=== PATIENT | male | born 1950 | race Caucasian/White ===

== ENCOUNTER 2018-07-03 16:45 | Inpatient (IN) | payer MEDICARE, OTHER ==
[2018-07-03 16:53] VITALS: BMI 18.6
--- NOTE | 2018-07-03 17:11 | C.PDOC ---
History Of Present Illness 68 y/o male with a PMHx of liver CA and cirrhosis presents to the ED accompanied by his sister for complaints of increasing abdominal girth and abdominal pain. Sister states the patient was living in [place] on hospice care, and was discharged home to [place] to be with family. Otherwise he denies any fever, vomiting, diarrhea, chest pain, SOB, or other complaints. Time Seen by Provider: 07/03/18 17:04 Chief Complaint (Nursing): Abdominal Pain History Per: Patient History/Exam Limitations: no limitations Onset/Duration Of Symptoms: Days Current Symptoms Are (Timing): Still Present Past Medical History Reviewed: Historical Data, Nursing Documentation, Vital Signs Vital Signs: Last Vital Signs Temp 98.8 F 07/03/18 16:52 Pulse 86 07/03/18 16:52 Resp 20 07/03/18 16:52 BP Pulse Ox 98 07/03/18 16:52 Primary Care Provider: FAMILY PROVIDER,NO - Medical History PMH: Benign Prostatic Hyperplasia, Diabetes, Hepatitis (C), Malignancy (Liver CA) Other PMH: Liver cirrhosis - [facility] Procedures OTHER ENDOSCOPY OF SM INTEST (05/04/13) PACKED CELL TRANSFUSION (05/04/13) PERCUTANEOUS ABDOMINAL DRAINAGE (05/04/13) PLATELET TRANSFUSION (05/04/13) THORACENTESIS (03/11/13) VACCINATION NEC (11/25/12) Family History: States: Unknown Family Hx - Social History Hx Tobacco Use: No Hx Alcohol Use: Yes (STOPPED 5YRS AGO) Hx Substance Use: Yes (HERION,COCAINE,LSD) - Immunization History Hx Tetanus Toxoid Vaccination: No Hx Influenza Vaccination: No Hx Pneumococcal Vaccination: No Review Of Systems Constitutional: Negative for: Fever, Chills Cardiovascular: Negative for: Chest Pain Respiratory: Negative for: Shortness of Breath Gastrointestinal: Positive for: Abdominal Pain, Other (Abdominal Distension). Negative for: Vomiting, Diarrhea Neurological: Negative for: Headache, Dizziness Physical Exam - Physical Exam Appears: No Acute Distress, Chronically Ill, Other (Cachectic) Skin: Warm, Jaundice Head: Atraumatic, Normacephalic Eye(s): bilateral: PERRL, EOMI, Scleral Icterus Oral Mucosa: Moist (and pink) Neck: Normal ROM Chest: Symmetrical Cardiovascular: Rhythm Regular, No Murmur Respiratory: No Accessory Muscle Use, Rales (faint rales at the bases), No Wheezing Gastrointestinal/Abdominal: Bowel Sounds (slightly hyperactive), Soft, No Tenderness, Distention (abdomen appears distended) Extremity: Normal ROM, No Pedal Edema, No Calf Tenderness Pulses: Left Dorsalis Pedis: Normal, Right Dorsalis Pedis: Normal Neurological/Psych: Oriented x3, Normal Speech ED Course And Treatment - Laboratory Results Result Diagrams: 07/03/18 17:40 07/03/18 17:40 ECG: Interpreted By Me ECG Rhythm: Sinus Rhythm, Nonspecific Changes ECG Interpretation: No Acute Changes, Abnormal Rate From EC O2 Sat by Pulse Oximetry: 98 (RA) Pulse Ox Interpretation: Normal Medical Decision Making Medical Decision Making: Impression: 68 y/o M with PMHx of liver CA, cirrhosis, on hospice care, presents w/ abdominal pain and distension, +DNR/DNI Initial Plan: - Obstructive series x-ray - Labs w/ cardiac enzymes - Reassess Patient and sister both state that patient is AAOx3 and compacity to sign DNR/DNI forms. Labs reviewed, Ammonia 41. Will have sister (patient's health care proxy) cosign. Sister states patient needs his normal lactulose dose. 18:[address] Ron, will admit to hospitalist service under Dr. Watson. 18:58 Dr. Ron states patient was previously admit to Dr. Raffi mccarty. 19:00 Case d/w Dr. Thomas who accepts patient to his service. Disposition Counseled Patient/Family Regarding: Studies Performed, Diagnosis - Disposition Disposition: HOSPITALIZED Disposition Time: 18:20 Condition: STABLE - Clinical Impression Clinical Impression: Abdominal discomfort, Cirrhosis of liver, Ascites, Dyspnea, Dehydration, Hyperammonemia - Scribe Statement The provider has reviewed the documentation as recorded by the Hyun Levi Provider Attestation: All medical record entries made by the Hyun were at my direction and personally dictated by me. I have reviewed the chart and agree that the record accurately reflects my personal performance of the history, physical exam, medical decision making, and the department course for this patient. I have also personally directed, reviewed, and agree with the discharge instructions and disposition.
[2018-07-03 17:44] LABS: EOS # 0.1 K/uL (0.0-0.7); MEAN CELL VOLUME 100.4 fL (80.0-94.0); MEAN CORPUSCULAR HEMOGLOBIN 34.8 pg (27.0-31.0); MEAN CORPUSCULAR HGB CONC 34.7 g/dL (33.0-37.0); MONO # 0.6 K/uL (0.0-0.8)
[2018-07-03 17:54] LABS: INR 1.9; PROTHROMBIN TIME 21.2 SECONDS (9.7-12.2)
[2018-07-03 17:58] LABS: ALT/SGPT 63 U/L (21-72); AST/SGOT 116 U/L (17-59); BLOOD UREA NITROGEN 49 mg/dL (9-20); CALCIUM 8.8 mg/dl (8.6-10.4); GFR NON-AFRICAN AMERICAN 55; LIPASE 167 U/L (23-300)
[2018-07-03 17:59] LABS: BASO % 0.1 % (0.0-2.0); EOS % 0.6 % (0.0-4.0); LYMPH # 0.4 K/uL (1.0-4.3); MEAN PLATELET VOLUME 8.5 fL (7.2-11.7); MONO % 7.3 % (0.0-10.0); NEUT # 7.6 K/uL (1.8-7.0); NRBC % 0.3 % (0.0-2.0); RBC 4.04 Mil/uL (4.40-5.90); RED CELL DISTRIBUTION WIDTH 18.6 % (11.5-14.5)
[2018-07-03 18:01] LABS: ALB/GLOB RATIO 0.5 (1.0-2.1)
[2018-07-03 18:05] LABS: HEMOGLOBIN 14.1 g/dL (12.0-18.0); WHITE BLOOD COUNT 8.8 K/uL (4.8-10.8)
[2018-07-03 18:06] LABS: PLATELET COUNT 118 K/uL (130-400)
[2018-07-03 18:08] LABS: B-TYPE NATRIURETIC PEPTIDE 316 pg/mL (0-900)
[2018-07-03] MEDS: Sodium Chloride 0.9% 1,000 ML IV SCH (18:40)
[2018-07-03 21:30] LABS: EOSINOPHIL 2 % (0-4); LYMPHOCYTE 4 % (20-40); MONOCYTE 5 % (0-10); NEUTROPHIL 89 % (50-75); TOTAL CELLS COUNTED 100
[2018-07-03 21:31] LABS: PLATELET ESTIMATE SLIGHTLY DECREASED (NORMAL)
[2018-07-03 21:33] LABS: ANISOCYTOSIS SLIGHT
[2018-07-04] MEDS: Sodium Chloride 0.9% 1,000 ML IV SCH (04:50)
[2018-07-04 09:09] LABS: HEMOGLOBIN 12.5 g/dL (12.0-18.0); MEAN CELL VOLUME 100.5 fL (80.0-94.0); MEAN CORPUSCULAR HEMOGLOBIN 35.7 pg (27.0-31.0); MEAN CORPUSCULAR HGB CONC 35.6 g/dL (33.0-37.0); MEAN PLATELET VOLUME 8.1 fL (7.2-11.7); RBC 3.49 Mil/uL (4.40-5.90); WHITE BLOOD COUNT 6.1 K/uL (4.8-10.8)
[2018-07-04 09:25] LABS: ALB/GLOB RATIO 0.5 (1.0-2.1); ALBUMIN 2.7 g/dL (3.5-5.0); ALT/SGPT 56 U/L (21-72); AST/SGOT 121 U/L (17-59); BLOOD UREA NITROGEN 44 mg/dL (9-20); CALCIUM 8.2 mg/dl (8.6-10.4); GFR NON-AFRICAN AMERICAN > 60
[2018-07-04 13:34] LABS: SQUAMOUS EPITHIAL 2 /hpf (0-5); URINE BACTERIA MOD (<OCC); URINE BILIRUBIN 2+ (NEGATIVE); URINE BLOOD NEGATIVE (NEGATIVE); URINE CLARITY Hazy (Clear); URINE COLOR Amber (YELLOW); URINE GLUCOSE (UA) NORMAL (Normal); URINE LEUKOCYTE ESTERASE 2+ Leu/uL (Negative); URINE PROTEIN NEGATIVE (NEGATIVE)
--- NOTE | 2018-07-04 14:50 | RAD ---
Date of service: 07/03/2018 PROCEDURE: Radiographs of the chest and abdomen (obstructive series) HISTORY: abd pain COMPARISON: Comparison is made to the previous chest x-ray dated 05/10/2013 TECHNIQUE: AP radiograph of the chest, with upright and supine radiographs of the abdomen. 3 views obtained. FINDINGS: CHEST: Lungs: The right lung is smaller than the left. There are linear opacities noted at the lower aspect of the right lung. Cardiovascular: Normal size heart. No pulmonary vascular congestion. No aortic atherosclerotic calcification present Pleura: Small right pleural effusion is suspected Other findings: None. ABDOMEN AND PELVIS: Bowel: Slightly dilated small bowel loops noted at the mid abdomen. Free air: None. Bones: Unremarkable. Other findings: None. IMPRESSION: Slightly dilated small bowel loops noted in the mid abdomen. Small right pleural effusion and linear opacities at the lower aspect of the right lung may represent atelectasis or scar tissue.
--- NOTE | 2018-07-06 09:33 | CP.PCM.PN ---
Subjective - Date & Time of Evaluation Date of Evaluation: 07/06/18 Time of Evaluation: 09:33 - Subjective Subjective: Progress note for Dr. Drew Patient is a 68 year old male with a past medical history of liver cancer and cirrhosis, who presents to the hospital with increased abdominal girth and discomfort. He recently was on hospice in [place] and moved back to [place]. The patient complains of abdominal discomfort/pressure, but denies pain. She denies chest pain, palpitations, dyspnea, cough, nausea, vomiting, fevers, leg pain and leg swelling. PMHx: liver cancer, cirrhosis SurgHx: right inguinal hernia repair FamHx: Brother- DM Meds: denies Allergies: NKDA SocHx: former alcohol use ("a lot of all alcohol" daily for 30+years; quit 15 y ears ago); former smoker (1/4pack [id number]); denies current drug use (formerly used IV heroin for 2 years, quit in the ) Objective - Vital Signs/Intake and Output Vital Signs (last 24 hours): Temp Pulse Resp BP Pulse Ox 97.7 F 106 H 18 107/72 99 07/06/18 07:00 07/06/18 07:02 07/06/18 07:00 07/06/18 09:18 07/06/18 07:00 - Medications Medications: Current Medications Hydrocodone Bitart/Acetaminophen (Vicodin 5 Mg-300 Mg) 2 tab PO Q8H PRN PRN Reason: Pain, severe (8-10) Stop: 07/10/18 21:03 Docusate Sodium (Colace) 100 mg PO BID [facility] Last Admin: 07/06/18 09:17 Dose: 100 mg Furosemide (Lasix) 20 mg PO DAILY [facility] Last Admin: 07/06/18 09:18 Dose: 20 mg Sodium Chloride (Sodium Chloride 0.9%) 1,000 mls @ 100 mls/hr IV .Q10H [facility] Last Admin: 07/04/18 04:50 Dose: 100 mls/hr Lactulose (Enulose) 30 gm PO TID [facility] Last Admin: 07/06/18 09:25 Dose: Not Given Midodrine (Proamatine) 5 mg PO TID [facility] Last Admin: 07/06/18 09:19 Dose: 5 mg Spironolactone (Aldactone) 25 mg PO BID [facility] Last Admin: 07/06/18 09:17 Dose: 25 mg - Labs Labs: 07/04/18 08:44 07/04/18 08:44 PT 21.2 SECONDS (9.7-12.2) H 07/03/18 17:40 INR 1.9 07/03/18 17:40 APTT 42.0 SECONDS (21-34) H 07/03/18 17:40 - Constitutional Appears: No Acute Distress - Head Exam Head Exam: ATRAUMATIC - Eye Exam Eye Exam: EOMI, Scleral icterus - ENT Exam ENT Exam: Mucous Membranes Moist - Respiratory Exam Respiratory Exam: NORMAL BREATHING PATTERN. absent: Rales, Rhonchi, Wheezes - Cardiovascular Exam Cardiovascular Exam: REGULAR RHYTHM, +S1, +S2 - GI/Abdominal Exam GI & Abdominal Exam: Distended, Firm, Normal Bowel Sounds. absent: Tenderness - Extremities Exam Extremities Exam: absent: Pedal Edema, Tenderness - Neurological Exam Neurological Exam: Alert, Awake, Oriented x3 - Psychiatric Exam Psychiatric exam: Normal Mood - Skin Skin Exam: Dry, Warm. absent: Normal Color (jaundiced) Assessment and Plan - Assessment and Plan (Free Text) Plan: 68 year old male with a history of liver cancer and cirrhosis. Liver cancer, Cirrhosis - Abdominal obstructive series: Slightly dilated small bowel loops noted in the mid abdomen. Small right pleural effusion and linear opacities at the lower aspect of the right lung may represent atelectasis or scar tissue. - Palliative care consulted, help appreciated - IR consulted for paracentesis, help appreciated UTI - UA: 2+ LE, 2+ bilirubin, 48 WBC, moderate bacteria - Urine cx: + ecoli, + staph epidermidis - Started macrobid 100mg Q12h daily; will monitor LFTs Case discussed with Dr. Viki Cummins, PGY2
--- NOTE | 2018-07-06 12:43 | CARD ---
APPROVED REPORT Date of service: 07/03/2018 EKG Measurement Heart [id number] <Conclusion> Sinus rhythm with short UT Possible Left atrial enlargement Borderline ECG
--- NOTE | 2018-07-06 15:33 | PCM.PCON ---
History of Present Illness - History of Present Illness History of Present Illness: Palliative consult requested by Doctor Viki for end of life care discussion Patient is a 68 yo male who presented to ED with abdominal distention, pain, and generalized weakness.Patient lived in [place], was on Hospice care there and discharged to come to [place] and stay with his sister. Patient presented POLST form indicating DNR/DNI. Patient's condition has worsened and is he is in need for paracentesis, which was scheduled today. Palliative care was asked to assist in process of admission to Hospice care. PMH: Hep C, liver cirrhosis, liver cancer Soc. Hx: single, lives alone, moved to [place] with his sister Jessica Barraza. Hx: denied Review of Systems - Constitutional Constitutional: Fatigue, Malaise, Weight Loss - EENT Eyes: absent: As Per HPI, Blind Spots, Blurred Vision, Change in Vision, Decreased Night Vision, Diplopia, Discharge, Dry Eye, Exophthalmos, Floaters, Irritation, Itchy Eyes, Loss of Peripheral Vision, Pain, Photophobia, Requires Corrective Lenses, Sees Flashes, Spots in Vision, Tunnel Vision, Other Visual Disturbances, Loss of Vision, Other Ears: absent: As Per HPI, Decreased Hearing, Ear Discharge, Ear Pain, Tinnitus, Abnormal Hearing, Disequilibrium, Dizziness, Other Nose/Mouth/Throat: absent: As Per HPI, Epistaxis, Nasal Congestion, Nasal Discharge, Nasal Obstruction, Nasal Trauma, Nose Pain, Post Nasal Drip, Sinus Pain, Sinus Pressure, Bleeding Gums, Change in Voice, Dental Pain, Dry Mouth, Dysphagia, Halitosis, Hoarsness, Lip Swelling, Mouth Lesions, Mouth Pain, Odynophagia, Sore Throat, Throat Swelling, Tongue Swelling, Facial Pain, Neck Pain, Neck Mass, Other - Cardiovascular Cardiovascular: Dyspnea on Exertion - Respiratory Respiratory: Dyspnea on Exertion - Gastrointestinal Gastrointestinal: Change in Bowel Habits - Genitourinary Genitourinary: Urinary Frequency, Urinary Urgency - Musculoskeletal Musculoskeletal: Limited Range of Motion, Muscle Weakness - Integumentary Integumentary: Change in Pigmentation, Dry Skin, Jaundice - Neurological Neurological: Weakness - Psychiatric Psychiatric: Anxiety - Endocrine Endocrine: Change in Body Appearance - Hematologic/Lymphatic Hematologic: absent: As Per HPI, Easy Bleeding, Easy Bruising, Lymphadenopathy, Other Physical Exam - Constitutional Appears: Chronically Ill - Head Exam Head Exam: ATRAUMATIC, NORMAL INSPECTION, NORMOCEPHALIC - Eye Exam Eye Exam: EOMI, Normal appearance, PERRL Pupil Exam: NORMAL ACCOMODATION, PERRL Additional comments: sclera yellow - ENT Exam ENT Exam: Mucous Membranes Dry - Neck Exam Neck exam: Positive for: Normal Inspection - Respiratory Exam Respiratory Exam: Decreased Breath Sounds, NORMAL BREATHING PATTERN - Cardiovascular Exam Cardiovascular Exam: Tachycardia, Irregular Rhythm - GI/Abdominal Exam GI & Abdominal Exam: Distended, Firm, Guarding, Hypoactive Bowel Sounds - Rectal Exam Rectal Exam: Deferred - Exam Exam: NORMAL INSPECTION - Extremities Exam Extremities exam: Positive for: pedal edema - Back Exam Back exam: NORMAL INSPECTION - Neurological Exam Neurological exam: Alert, Oriented x3 - Psychiatric Exam Psychiatric exam: Anxious - Skin Skin Exam: Dry, Intact, Pallor Palliative Care Assessment - Modified MRC Dyspnea Scale Modified MRC Dyspnea Scale: Has to stop for breath when walking at own pace Grade: 3 - Pain Scale Pain Score: 5 Pain Scale Used: Numeric - Pain Location Left, Right or Bilateral: Bilateral Pain Location Body Site: Abdomen - Pain Description Description: Constant, Pressure Intensity of pain at present: 5 Acceptable Level of Pain: 2-3 Radiation Location: does not radiate Variations/Patterns: Constant pain, not related to food intakes Site Observation: Abdomen Duration: few months Pain Behavior: Guarding, Irritability, Facial Grimacing Aggravating Factors: None Alleviating Factors/Management Techniques: Medication, Position Change, Relaxation Techniques Effects of Pain: Affects ADLs, mood and sleep. - Pavel Scale Sensory Perception: No Impairment Moisture: Rarely Moist Activity: Walks Occasionally Mobility: Slightly Impaired Nutrition: Probably Inadequate Friction & Shear: Potential Problem Total Score - Skin Risk Assessment: 18 - Psychosocial Distress Patient screened for psychosocial distress: Yes Psychosocial Intervention(s): Goals of care discussed, arrangd for hospice evaluation, home hospice discussed with patient's sister Jessica who agreed with. Outcome: Resolved Palliative Care - Goals Treatment Goal(s): Alleviate symptoms End of life care discussed: Yes - Plan Interdisciplinary involved: Nurse, lay out worker, ancillary services manager therapy, Physician, Pastoral care Discharge planning: Home, Hospice Assessment & Plan - Assessment and Plan (Free Text) Assessment: Palliative consult DNR/DNI, POLST on chart, PPS 20% I reviewed medical records, all diagnostic studies, examined and interviewed patient in the bed. Patient is alert, oriented X 3, looking very ill. Skin and sclera jaundiced. Abdomen uncomfortably distended. Patient unable to take deep breaths due to distention. Doctor Drew present and Paracentesis ordered for today. I discuses possibility of Pleur Ex catheter as a solution for managing ascites at home. Patient agreed. Doctor Drew concurred. Goals of care discussed with patient. Patient is fully aware of his diagnosis and understands hospice care. He wants to feel better, go home, and peacefully. Patient requested I talk to his sister and evaluate her ability to provide environment for his home hospice care. I spoke to Jessica over the phone. She understands that her brother's life expectancy is very short. She is willing to take care of him at home and needs little extra time to rearrange furniture at home. She is concerned that her grand kids could see patient very sick and tries to provide private room for him. Jessica agreed with home hospice. Impression * Metastatic disease * Terminal stage * Life expectancy very short * Patient wishes to be assisted with symptoms control especially abdominal distention and pain * Patient agreeable with home hospice. His sister Jessica supports it * Patient wishes to remain DNR/DNI Suggestion * Consider Pleur Ex cath insertion prior to discharge * Continue Lactulose * Continue Aldactone * Pain management as of resent * Hospice evaluation for home placement. Palliative care will remain on board as needed. Advance Care planing 55 min
[2018-07-06] MEDS: Hydrocodone/Acetaminophen 5 mg /300 mg Tab PO PRN (20:11)
[2018-07-07 08:12] LABS: BASO % 0.1 % (0.0-2.0); EOS # 0.1 K/uL (0.0-0.7); LYMPH # 0.4 K/uL (1.0-4.3); MEAN CORPUSCULAR HEMOGLOBIN 35.2 pg (27.0-31.0); RBC 3.59 Mil/uL (4.40-5.90); RED CELL DISTRIBUTION WIDTH 19.1 % (11.5-14.5)
[2018-07-07 08:19] LABS: EOS % 2.5 % (0.0-4.0); HEMOGLOBIN 12.7 g/dL (12.0-18.0); LYMPH % 9.6 % (20.0-40.0); MEAN CELL VOLUME 100.4 fL (80.0-94.0); MEAN CORPUSCULAR HGB CONC 35.1 g/dL (33.0-37.0); MEAN PLATELET VOLUME 7.8 fL (7.2-11.7); MONO # 0.8 K/uL (0.0-0.8); MONO % 18.2 % (0.0-10.0); NEUT # 2.9 K/uL (1.8-7.0); NEUT % 69.6 % (50.0-75.0); NRBC % 0.2 % (0.0-2.0); WHITE BLOOD COUNT 4.1 K/uL (4.8-10.8)
[2018-07-07 08:20] LABS: PLATELET COUNT 109 K/uL (130-400)
[2018-07-07 08:38] LABS: ALB/GLOB RATIO 0.5 (1.0-2.1); ALBUMIN 2.7 g/dL (3.5-5.0); ALT/SGPT 59 U/L (21-72); AST/SGOT 116 U/L (17-59); BLOOD UREA NITROGEN 36 mg/dL (9-20); CALCIUM 8.7 mg/dl (8.6-10.4); GFR NON-AFRICAN AMERICAN > 60
[2018-07-07 10:43] LABS: ANISOCYTOSIS MODERATE; LYMPHOCYTE 7 % (20-40); MONOCYTE 15 % (0-10); NEUTROPHIL 78 % (50-75); PLATELET ESTIMATE SLIGHTLY DECREASED (NORMAL); TOTAL CELLS COUNTED 100
[2018-07-07] MEDS ORDERED: Lidocaine 2% MPF (5 ml) Inj ONE (12:07)
--- NOTE | 2018-07-07 12:26 | PCM.PPROG ---
Palliative Care - Goals Treatment Goal(s): Alleviate symptoms End of life care discussed: Yes - Plan Interdisciplinary involved: Nurse, mechanical maintenance worker, strategic accounts manager, Physician, Pastoral care Discharge planning: Home, Hospice
--- NOTE | 2018-07-07 12:29 | PCM.PPROG ---
History of Present Illness - History of Present Illness History of Present Illness: Patient examined in bed, looking ill. Abdomen still distended. Patient is for paracentesis today. Patient is anxious and called his sister with impression he was discharged home today. Patient is planed for Pleurx cath placement as well. primary team is working on scheduling it with IR. Patient is to be evaluated by hospice for home placement. Sister Jessica is requesting to be called when hospice arrives. Review of Systems - Constitutional Constitutional: Fatigue, Weight Loss, Weakness - EENT Eyes: absent: As Per HPI, Blind Spots, Blurred Vision, Change in Vision, Decreased Night Vision, Diplopia, Discharge, Dry Eye, Exophthalmos, Floaters, Irritation, Itchy Eyes, Loss of Peripheral Vision, Pain, Photophobia, Requires Corrective Lenses, Sees Flashes, Spots in Vision, Tunnel Vision, Other Visual Disturbances, Loss of Vision, Other Ears: absent: As Per HPI, Decreased Hearing, Ear Discharge, Ear Pain, Tinnitus, Abnormal Hearing, Disequilibrium, Dizziness, Other Nose/Mouth/Throat: absent: As Per HPI, Epistaxis, Nasal Congestion, Nasal Discharge, Nasal Obstruction, Nasal Trauma, Nose Pain, Post Nasal Drip, Sinus Pain, Sinus Pressure, Bleeding Gums, Change in Voice, Dental Pain, Dry Mouth, Dysphagia, Halitosis, Hoarsness, Lip Swelling, Mouth Lesions, Mouth Pain, Pam nophagia, Sore Throat, Throat Swelling, Tongue Swelling, Facial Pain, Neck Pain, Neck Mass, Other - Cardiovascular Cardiovascular: Dyspnea, Dyspnea on Exertion - Respiratory Respiratory: Dyspnea, Dyspnea on Exertion - Gastrointestinal Gastrointestinal: Bloating - Genitourinary Genitourinary: Urinary Frequency, Urinary Urgency - Musculoskeletal Musculoskeletal: Abnormal Gait, Limited Range of Motion, Stiffness - Integumentary Integumentary: Change in Pigmentation, Dry Skin - Neurological Neurological: Weakness - Psychiatric Psychiatric: Anxiety - Endocrine Endocrine: Change in Body Appearance - Hematologic/Lymphatic Hematologic: Easy Bleeding Physical Exam - Constitutional Appears: Chronically Ill - Head Exam Head Exam: ATRAUMATIC, NORMAL INSPECTION, NORMOCEPHALIC - Eye Exam Eye Exam: EOMI, Normal appearance, PERRL Pupil Exam: NORMAL ACCOMODATION, PERRL - ENT Exam ENT Exam: Mucous Membranes Dry - Neck Exam Neck exam: Positive for: Normal Inspection - Respiratory Exam Respiratory Exam: Decreased Breath Sounds, NORMAL BREATHING PATTERN - Cardiovascular Exam Cardiovascular Exam: Tachycardia, Irregular Rhythm - GI/Abdominal Exam GI & Abdominal Exam: Distended, Firm, Hypoactive Bowel Sounds - Rectal Exam Rectal Exam: Deferred - Exam Exam: NORMAL INSPECTION - Extremities Exam Extremities exam: Positive for: pedal edema - Back Exam Back exam: NORMAL INSPECTION - Neurological Exam Neurological exam: Alert, Oriented x3 - Psychiatric Exam Psychiatric exam: Anxious - Skin Skin Exam: Dry, Intact Additional comments: jaundiced Palliative Care Assessment - Modified MRC Dyspnea Scale Modified MRC Dyspnea Scale: Short of Breath when hurrying or walking up a slight hill Grade: 2 - Pain Scale Pain Score: 5 Pain Scale Used: Numeric - Pain Location Left, Right or Bilateral: Bilateral Pain Location Body Site: Abdomen - Pain Description Description: Constant, Pressure, Dull Intensity of pain at present: 5 Acceptable Level of Pain: 2-3 Radiation Location: NA Variations/Patterns: NA Site Observation: Abdomen Duration: Months Pain Behavior: Irritability, Rubbing Site Aggravating Factors: None Alleviating Factors/Management Techniques: Medication, Relaxation Techniques Effects of Pain: Affects mood, sleep, appetite Effectiveness of Techniques: Pain level maintained bellow 4/10 with pain meds - Pavel Scale Sensory Perception: No Impairment Moisture: Rarely Moist Activity: Walks Frequently Mobility: Slightly Impaired Nutrition: Probably Inadequate Friction & Shear: Potential Problem Total Score - Skin Risk Assessment: 19 - Psychosocial Distress Patient screened for psychosocial distress: Yes Outcome: Referred to social human services assistants, Referred to pastoral care (Distress level remains mild to high due to diagnosis and anticipations of .) Palliative Care - Goals Treatment Goal(s): Alleviate symptoms End of life care discussed: Yes End of life discussion: End of life care discussed with patient's sister Jessica over the phone. She understands that patient will be evaluated for hospice care at home and agreed. Jessica also agreed with Pleurex cath insertion. This was shared with Control Room Tender Kate and Doctor Snehal. Awaiting Hospice evaluation. - Plan Interdisciplinary involved: Nurse, dairy husbandry worker, business unit manager, Physician, Pastoral care Discharge planning: Home, Hospice Assessment & Plan - Assessment and Plan (Free Text) Assessment: Impression * Patient remains clinically very ill with complex symptoms requiring complex management * Life expectancy is very short, MELD score 29, indicating 20% mortality rate over 3 months period * Increased anxiety related to diagnosis and anticipation * At risk for malnutrition * Mild dyspnea 2nd to distended abdomen * Abdominal pain related to ascites and liver cancer * At risk for pressure sores due to decreased ability to ambulate, prolonged bed rest and poor nutrition Suggestion * Assist with ADLs and reassure of safety * Hospice evaluation for Home based hospice care * Consider Remeron Q HS for management of anxiety, depression and insomnia * Offer pleasure food * O2 via [place] * promote skin integrity * Paracentesis and Pleurex cath Palliative care will remain on board as needed to offer support and assist with symptoms management. Advance Care planing 30 min
--- NOTE | 2018-07-07 13:38 | CP.PCM.PN ---
Subjective - Date & Time of Evaluation Date of Evaluation: 07/07/18 Time of Evaluation: 13:31 - Subjective Subjective: Medicine note for Dr. Drew's Service Patient was seen and examined at bedside. Patient admitted to shortness of breath and abdominal pain 2/2 to increased abdominal girth. Patient is slightly altered. Nursing reports 3-5 BM overnight. -- Patient is now s/p paracentesis 7200cc removed. PleurX reserved for patient, plan for /friday insertion pending volume of ascites. Objective - Vital Signs/Intake and Output Vital Signs (last 24 hours): Temp Pulse Resp BP Pulse Ox 97.4 F L 98 H 20 110/72 100 07/07/18 07:00 07/07/18 07:00 07/07/18 07:00 07/07/18 09:34 07/07/18 07:00 Intake and Output: 07/07/18 07/07/18 06:59 18:59 Intake Total 380 Balance 380 - Medications Medications: Current Medications Hydrocodone Bitart/Acetaminophen (Vicodin 5 Mg-300 Mg) 2 tab PO Q8H PRN PRN Reason: Pain, severe (8-10) Stop: 07/10/18 21:03 Last Admin: 07/06/18 20:11 Dose: 2 tab Docusate Sodium (Colace) 100 mg PO BID [facility] Last Admin: 07/07/18 09:32 Dose: 100 mg Furosemide (Lasix) 20 mg PO DAILY [facility] Last Admin: 07/07/18 09:34 Dose: 20 mg Lactulose (Enulose) 30 gm PO TID [facility] Last Admin: 07/07/18 09:33 Dose: Not Given Midodrine (Proamatine) 5 mg PO TID [facility] Last Admin: 07/07/18 09:32 Dose: 5 mg Nitrofurantoin Macrocrystals (Macrobid) 100 mg PO Q12H [facility]; Protocol Stop: 07/08/18 14:31 Last Admin: 07/07/18 02:19 Dose: 100 mg Spironolactone (Aldactone) 25 mg PO BID [facility] Last Admin: 07/07/18 09:33 Dose: 25 mg - Labs Labs: 07/07/18 07:57 07/07/18 07:57 PT 21.2 SECONDS (9.7-12.2) H 07/03/18 17:40 INR 1.9 07/03/18 17:40 APTT 42.0 SECONDS (21-34) H 07/03/18 17:40 - Constitutional Appears: Confused, Cachectic, Chronically Ill - Head Exam Head Exam: NORMAL INSPECTION, NORMOCEPHALIC - Eye Exam Eye Exam: EOMI, Normal appearance, PERRL, Scleral icterus Pupil Exam: NORMAL ACCOMODATION - ENT Exam ENT Exam: Mucous Membranes Dry - Respiratory Exam Respiratory Exam: Clear to Ausculation Bilateral, NORMAL BREATHING PATTERN. absent: Decreased Breath Sounds - Cardiovascular Exam Cardiovascular Exam: Tachycardia - GI/Abdominal Exam GI & Abdominal Exam: Distended, Firm, Tenderness, Organomegaly - Extremities Exam Extremities Exam: Normal Inspection. absent: Pedal Edema, Tenderness - Neurological Exam Neurological Exam: Alert, Awake. absent: Oriented x3 - Psychiatric Exam Psychiatric exam: Normal Affect, Normal Mood - Skin Skin Exam: absent: Normal Color (jaundice) Assessment and Plan - Assessment and Plan (Free Text) Plan: Liver Cancer Cirrhosis -- IR consulted for PleurX catheter insertion Management - Therapeutic paracentesis performed 07/07/18 - 7200cc removed - Plan for PleurX catheter insertion 07/09 or 07/10 pending volume of ascites - Home hospice evaluation is being performed - Jessica (Sister) is POA, agreeable to PleurX cath and home hospice Prophylactic Measures - DVT PPX: Lovenox daily Disposition: Patient is for PleurX catheter 07/09 or 07/10. Sister will be visiting today to speak to Hospice. DELORIS Drew, Chyna Brian DO, PGY2
--- NOTE | 2018-07-08 06:37 | HP ---
HISTORY OF PRESENT ILLNESS: Mr. Mora was admitted to the hospital with the chief complaints of abdominal pain, distention, Patient has history of liver disease, liver cirrhosis. The patient moved from [place] where he was in Hospice. cirrhosis and ascites. PHYSICAL EXAMINATION: GENERAL: The patient is awake, alert, oriented . VITAL SIGNS: Temperature . HEENT: Within normal limits. NECK: Supple. CHEST: Symmetrical. HEART: Regular. ABDOMEN: Distended. EXTREMITIES: No edema. IMPRESSION AND PLAN: The patient suffers from liver cirrhosis, ascites, liver failure. At this point, the patient is to get bedrest, supportive care. palliative care consult. Jennifer Drew MD
[2018-07-08 07:17] LABS: BASO % 0.2 % (0.0-2.0); EOS # 0.1 K/uL (0.0-0.7); EOS % 2.5 % (0.0-4.0); HEMOGLOBIN 12.9 g/dL (12.0-18.0); LYMPH # 0.5 K/uL (1.0-4.3); LYMPH % 9.3 % (20.0-40.0); MEAN CELL VOLUME 100.4 fL (80.0-94.0); MEAN CORPUSCULAR HEMOGLOBIN 34.8 pg (27.0-31.0); MEAN CORPUSCULAR HGB CONC 34.6 g/dL (33.0-37.0); MEAN PLATELET VOLUME 7.9 fL (7.2-11.7); MONO # 0.9 K/uL (0.0-0.8); MONO % 19.5 % (0.0-10.0); NEUT # 3.3 K/uL (1.8-7.0); NEUT % 68.5 % (50.0-75.0); PLATELET COUNT 99 K/uL (130-400); RBC 3.72 Mil/uL (4.40-5.90); RED CELL DISTRIBUTION WIDTH 18.6 % (11.5-14.5); WHITE BLOOD COUNT 4.8 K/uL (4.8-10.8)
[2018-07-08 07:25] LABS: ALT/SGPT 70 U/L (21-72); AST/SGOT 129 U/L (17-59); BLOOD UREA NITROGEN 36 mg/dL (9-20); CALCIUM 8.5 mg/dl (8.6-10.4); GFR NON-AFRICAN AMERICAN > 60
[2018-07-08 07:32] LABS: ALB/GLOB RATIO 0.5 (1.0-2.1); ALBUMIN 2.7 g/dL (3.5-5.0)
--- NOTE | 2018-07-08 09:18 | CP.PCM.PN ---
Subjective - Date & Time of Evaluation Date of Evaluation: 07/08/18 Time of Evaluation: 09:16 - Subjective Subjective: Medicine note for Dr. Drew's Service Patient was seen and examined at bedside. Patient reports shortness of breath is improving. Objective - Vital Signs/Intake and Output Vital Signs (last 24 hours): Temp Pulse Resp BP Pulse Ox 97.7 F 100 H 18 100/67 100 07/08/18 07:00 07/08/18 07:00 07/08/18 07:00 07/08/18 07:00 07/08/18 07:00 Intake and Output: 07/08/18 07/08/18 06:59 18:59 Intake Total 400 Balance 400 - Medications Medications: Current Medications Hydrocodone Bitart/Acetaminophen (Vicodin 5 Mg-300 Mg) 2 tab PO Q8H PRN PRN Reason: Pain, severe (8-10) Stop: 07/10/18 21:03 Last Admin: 07/06/18 20:11 Dose: 2 tab Docusate Sodium (Colace) 100 mg PO BID [facility] Last Admin: 07/07/18 17:08 Dose: 100 mg Enoxaparin Sodium (Lovenox) 40 mg SC DAILY [facility] Furosemide (Lasix) 20 mg PO DAILY [facility] Last Admin: 07/07/18 09:34 Dose: 20 mg Lactulose (Enulose) 30 gm PO TID [facility] Last Admin: 07/07/18 17:10 Dose: 30 gm Midodrine (Proamatine) 5 mg PO TID [facility] Last Admin: 07/07/18 17:08 Dose: 5 mg Nitrofurantoin Macrocrystals (Macrobid) 100 mg PO Q12H [facility]; Protocol Stop: 07/08/18 14:31 Last Admin: 07/08/18 02:30 Dose: 100 mg Spironolactone (Aldactone) 25 mg PO BID [facility] Last Admin: 07/07/18 17:08 Dose: 25 mg - Labs Labs: 07/08/18 06:54 07/08/18 06:54 PT 21.2 SECONDS (9.7-12.2) H 07/03/18 17:40 INR 1.9 07/03/18 17:40 APTT 42.0 SECONDS (21-34) H 07/03/18 17:40 - Constitutional Appears: No Acute Distress, Cachectic, Chronically Ill - Head Exam Head Exam: NORMAL INSPECTION, NORMOCEPHALIC - Eye Exam Eye Exam: EOMI, Normal appearance, PERRL, Scleral icterus - ENT Exam ENT Exam: Mucous Membranes Dry - Respiratory Exam Respiratory Exam: Clear to Ausculation Bilateral, NORMAL BREATHING PATTERN - Cardiovascular Exam Cardiovascular Exam: Tachycardia - GI/Abdominal Exam GI & Abdominal Exam: Distended, Soft, Normal Bowel Sounds. absent: Firm, Tenderness - Extremities Exam Extremities Exam: Normal Inspection. absent: Pedal Edema, Tenderness - Back Exam Back Exam: NORMAL INSPECTION - Neurological Exam Neurological Exam: Alert, Awake, Oriented x3 - Psychiatric Exam Psychiatric exam: Normal Affect, Normal Mood - Skin Skin Exam: Dry, Intact, Normal Color, Warm Assessment and Plan - Assessment and Plan (Free Text) Plan: Liver Cancer Cirrhosis -- IR consulted for PleurX catheter insertion Management - Therapeutic paracentesis performed 07/07/18 - 7200cc removed - Home hospice evaluation is being performed - Jessica (Sister) is POA, agreeable to PleurX cath and home hospice - Plan for PleurX catheter insertion 07/09 or 07/10 pending volume of ascites Prophylactic Measures - DVT PPX: Lovenox daily Disposition: Patient is for PleurX catheter 07/09 or 07/10. Sister will be visiting to speak to Hospice. DELORIS Drew, Chyna Brian DO, PGY2
[2018-07-08] MEDS: Enoxaparin 40 mg Syringe SC SCH (09:32)
[2018-07-08 09:59] LABS: ANISOCYTOSIS SLIGHT; EOSINOPHIL 3 % (0-4); LYMPHOCYTE 11 % (20-40); MONOCYTE 23 % (0-10); NEUTROPHIL 63 % (50-75); PLATELET ESTIMATE DECREASED (NORMAL); TOTAL CELLS COUNTED 100
--- NOTE | 2018-07-08 10:08 | PCM.SURG1 ---
Surgeon's Initial Post Op Note - Surgeon's Notes Surgeon: Ted Mora MD Homogenizer Operator: NONE Type of Anesthesia: Local Pre-Operative Diagnosis: Ascites Operative Findings: US showed large amount of ascites Post-Operative Diagnosis: Ascites Operation Performed: US guided paracentesis Specimen/Specimens Removed: 7.2 liters of straw colored fluid Estimated Blood Loss: EBL {In ML}: 0 Blood Products Given: N/A Drains Used: No Drains Post-Op Condition: Poor Date of Surgery/Procedure: 07/07/18 Time of Surgery/Procedure: 12:20
--- NOTE | 2018-07-09 07:12 | CP.PCM.PN ---
Subjective - Date & Time of Evaluation Date of Evaluation: 07/09/18 Time of Evaluation: 07:12 - Subjective Subjective: Progress note for Dr. Drew Patient was seen and examined at bedside in no acute distress. Patient states he has minimal abdominal discomfort post paracentesis, but believes fluid is building up again. He denies chest pain, palpitations, dyspnea, cough, n/v, fevers, leg pain and leg swelling. No acute events overnight. Objective - Vital Signs/Intake and Output Vital Signs (last 24 hours): Temp Pulse Resp BP Pulse Ox 97.5 F L 97 H 20 101/68 97 07/08/18 23:00 07/08/18 23:00 07/08/18 23:00 07/08/18 23:00 07/08/18 23:00 - Medications Medications: Current Medications Hydrocodone Bitart/Acetaminophen (Vicodin 5 Mg-300 Mg) 2 tab PO Q8H PRN PRN Reason: Pain, severe (8-10) Stop: 07/10/18 21:03 Last Admin: 07/06/18 20:11 Dose: 2 tab Docusate Sodium (Colace) 100 mg PO BID [facility] Last Admin: 07/08/18 17:28 Dose: 100 mg Enoxaparin Sodium (Lovenox) 40 mg SC DAILY [facility] Last Admin: 07/08/18 09:32 Dose: 40 mg Furosemide (Lasix) 20 mg PO DAILY [facility] Last Admin: 07/08/18 09:51 Dose: Not Given Lactulose (Enulose) 30 gm PO TID [facility] Last Admin: 07/08/18 17:28 Dose: Not Given Midodrine (Proamatine) 5 mg PO TID [facility] Last Admin: 07/08/18 17:28 Dose: 5 mg Spironolactone (Aldactone) 25 mg PO BID [facility] Last Admin: 07/08/18 17:28 Dose: 25 mg - Labs Labs: 07/08/18 06:54 07/08/18 06:54 PT 21.2 SECONDS (9.7-12.2) H 07/03/18 17:40 INR 1.9 07/03/18 17:40 APTT 42.0 SECONDS (21-34) H 07/03/18 17:40 - Additional Findings Additional findings: - Constitutional Appears: No Acute Distress - Head Exam Head Exam: ATRAUMATIC - Eye Exam Eye Exam: EOMI, Scleral icterus - ENT Exam ENT Exam: Mucous Membranes Moist - Respiratory Exam Respiratory Exam: NORMAL BREATHING PATTERN. absent: Rales, Rhonchi, Wheezes - Cardiovascular Exam Cardiovascular Exam: REGULAR RHYTHM, +S1, +S2 - GI/Abdominal Exam GI & Abdominal Exam: Distended, soft, Normal Bowel Sounds. absent: Tenderness - Extremities Exam Extremities Exam: absent: Pedal Edema, Tenderness - Neurological Exam Neurological Exam: Alert, Awake, Oriented x3 - Psychiatric Exam Psychiatric exam: Normal Mood - Skin Skin Exam: Dry, Warm. absent: Normal Color (jaundiced) Assessment and Plan - Assessment and Plan (Free Text) Plan: 68 year old male with a history of liver cancer and cirrhosis. Liver cancer, Cirrhosis - Abdominal obstructive series: Slightly dilated small bowel loops noted in the mid abdomen. Small right pleural effusion and linear opacities at the lower aspect of the right lung may represent atelectasis or scar tissue. - Palliative care consulted, help appreciated * Home hospice evaluation is being performed - Jessica (Sister) is POA, agreeable to PleurX cath and home hospice - IR consulted for paracentesis and PleurX catheter placement; help appreciated * Therapeutic paracentesis performed 07/07/18 - 7200cc removed * PleurX catheter placement scheduled for today, 07/09/18. UTI - UA: 2+ LE, 2+ bilirubin, 48 WBC, moderate bacteria - Urine cx: + ecoli, + staph epidermidis - Macrobid 100mg Q12h daily; will monitor LFTs; last dose given on 07/08/18 Prophylactic Measures - DVT PPX: Lovenox daily Case discussed with Dr. Viki Cummins, PGY2
[2018-07-09 08:23] LABS: INR 1.9; PROTHROMBIN TIME 20.5 SECONDS (9.7-12.2)
[2018-07-09 08:35] LABS: ALB/GLOB RATIO 0.5 (1.0-2.1); ALBUMIN 2.7 g/dL (3.5-5.0); ALT/SGPT 73 U/L (21-72); AST/SGOT 133 U/L (17-59); BLOOD UREA NITROGEN 38 mg/dL (9-20); CALCIUM 8.7 mg/dl (8.6-10.4); GFR NON-AFRICAN AMERICAN 55
[2018-07-09 08:39] LABS: EOS # 0.1 K/uL (0.0-0.7); EOS % 1.3 % (0.0-4.0); HEMOGLOBIN 13.6 g/dL (12.0-18.0); LYMPH # 0.6 K/uL (1.0-4.3); LYMPH % 9.7 % (20.0-40.0); MEAN CELL VOLUME 100.8 fL (80.0-94.0); MEAN CORPUSCULAR HEMOGLOBIN 35.4 pg (27.0-31.0); MEAN CORPUSCULAR HGB CONC 35.1 g/dL (33.0-37.0); MEAN PLATELET VOLUME 7.9 fL (7.2-11.7); MONO # 1.2 K/uL (0.0-0.8); MONO % 18.1 % (0.0-10.0); NEUT # 4.6 K/uL (1.8-7.0); NEUT % 70.9 % (50.0-75.0); PLATELET COUNT 106 K/uL (130-400); RBC 3.84 Mil/uL (4.40-5.90); RED CELL DISTRIBUTION WIDTH 19.2 % (11.5-14.5); WHITE BLOOD COUNT 6.5 K/uL (4.8-10.8)
--- NOTE | 2018-07-09 09:12 | US ---
Date of Procedure: 07/07/2018 PROCEDURE: Ultrasound-guided paracentesis, CPT 48103 Medications: 7 cc 1% Lidocaine HISTORY: Ascites, abdominal pain, cirrhosis TECHNIQUE: Following informed consent , the patient was placed supine on the stretcher and the site was marked. A limited abdominal ultrasound was performed that showed a large amount of intra-abdominal fluid. Procedural time out was called and the Pt's abdomen was marked and prepped and draped in the usual sterile fashion. Ultrasound-guided large volume paracentesis performed. A total of 7.2 Liters of straw colored fluid was removed without complication. IMPRESSION: Ultrasound-guided large volume paracentesis.
[2018-07-09] MEDS ORDERED: Lidocaine Hydrochloride 20 ML INJ ONE (09:44)
[2018-07-09] MEDS ORDERED: ceFAZolin 1 gm in NS 1 GM/100 ML BAG IVPB ONE (09:45)
[2018-07-09] MEDS ORDERED: Midazolam 2 MG/2 ML VIAL ONE (09:51)
[2018-07-09 09:54] LABS: ANISOCYTOSIS MODERATE; BANDS 1 % (0-2); EOSINOPHIL 2 % (0-4); LYMPHOCYTE 8 % (20-40); MONOCYTE 16 % (0-10); NEUTROPHIL 73 % (50-75); PLATELET ESTIMATE SLIGHTLY DECREASED (NORMAL); POIKILOCYTOSIS SLIGHT; TOTAL CELLS COUNTED 100
[2018-07-09 09:55] LABS: BURR CELLS SLIGHT
--- NOTE | 2018-07-09 11:37 | PCM.SURG1 ---
Surgeon's Initial Post Op Note - Surgeon's Notes Surgeon: Ted Mora MD Learning And Development Analyst: NONE Type of Anesthesia: Local Pre-Operative Diagnosis: Ascites, liver cancer Operative Findings: US showed moderate ascites Post-Operative Diagnosis: Ascites, liver cancer Operation Performed: PleurX peritoneal drainage catheter placement. Specimen/Specimens Removed: none Estimated Blood Loss: EBL {In ML}: 2 Blood Products Given: N/A Post-Op Condition: Poor Date of Surgery/Procedure: 07/09/18 Time of Surgery/Procedure: 11:30
[2018-07-09] MEDS: Hydrocodone/Acetaminophen 5 mg /300 mg Tab PO PRN ×2 (14:16→22:02)
--- NOTE | 2018-07-10 07:01 | CP.PCM.PN ---
Subjective - Date & Time of Evaluation Date of Evaluation: 07/10/18 Time of Evaluation: 06:57 - Subjective Subjective: Medicine note for Dr. Drew's Service Patient was seen and examined at bedside. Patient reports he feels some pain at pleurx cathetar insertion but overall, feels "okay". Denied any shortness of breath or chest pain. Objective - Vital Signs/Intake and Output Vital Signs (last 24 hours): Temp Pulse Resp BP Pulse Ox 97.8 F 93 H 20 95/60 L 98 07/09/18 23:40 07/09/18 23:40 07/09/18 23:40 07/09/18 23:40 07/09/18 23:40 Intake and Output: 07/09/18 07/10/18 18:59 06:59 Intake Total 608 300 Balance 608 300 - Medications Medications: Current Medications Hydrocodone Bitart/Acetaminophen (Vicodin 5 Mg-300 Mg) 2 tab PO Q8H PRN PRN Reason: Pain, severe (8-10) Stop: 07/10/18 21:03 Last Admin: 07/09/18 22:02 Dose: 2 tab Docusate Sodium (Colace) 100 mg PO BID [facility] Last Admin: 07/09/18 17:32 Dose: 100 mg Enoxaparin Sodium (Lovenox) 40 mg SC DAILY [facility] Last Admin: 07/08/18 09:32 Dose: 40 mg Furosemide (Lasix) 20 mg PO DAILY [facility] Last Admin: 07/09/18 10:00 Dose: Not Given Lactulose (Enulose) 30 gm PO TID [facility] Last Admin: 07/09/18 17:35 Dose: 30 gm Midodrine (Proamatine) 5 mg PO TID [facility] Last Admin: 07/09/18 17:33 Dose: 5 mg Spironolactone (Aldactone) 25 mg PO BID [facility] Last Admin: 07/09/18 17:32 Dose: 25 mg - Labs Labs: 07/09/18 08:08 07/09/18 08:08 PT 20.5 SECONDS (9.7-12.2) H 07/09/18 08:08 INR 1.9 07/09/18 08:08 APTT 50.0 SECONDS (21-34) H 07/09/18 08:08 - Constitutional Appears: No Acute Distress, Cachectic, Chronically Ill - Head Exam Head Exam: NORMAL INSPECTION, NORMOCEPHALIC - Eye Exam Eye Exam: EOMI, Normal appearance, Scleral icterus Pupil Exam: NORMAL ACCOMODATION - ENT Exam ENT Exam: Mucous Membranes Dry - Respiratory Exam Respiratory Exam: Clear to Ausculation Bilateral, NORMAL BREATHING PATTERN. absent: Decreased Breath Sounds, Wheezes - Cardiovascular Exam Cardiovascular Exam: REGULAR RHYTHM - GI/Abdominal Exam GI & Abdominal Exam: Distended, Soft, Normal Bowel Sounds Additional comments: Pleurx catheter in place, dressing clean dry and intact - Extremities Exam Extremities Exam: Normal Inspection. absent: Pedal Edema, Tenderness - Neurological Exam Neurological Exam: Alert, Awake, Oriented x3 - Psychiatric Exam Psychiatric exam: Normal Affect, Normal Mood - Skin Additional comments: jaundice Assessment and Plan - Assessment and Plan (Free Text) Plan: Liver Cancer Cirrhosis -- Palliative Care consulted - for goals of care -- IR consulted for PleurX catheter insertion Management - Therapeutic paracentesis performed 07/07/18 - 7200cc removed - Jessica (Sister) is POA, agreeable to PleurX cath and home hospice - Home hospice evaluation is being performed - PleurX catheter - inserted 07/09/18 UTI - RESOLVED Prophylactic Measures - DVT PPX: Lovenox daily Disposition: Patient is medically stable for discharge. Pleurx catheter is in place. Home Hospice has been arranged for patient. DELORIS Drew, Chyna Brian DO, PGY2
[2018-07-10 07:40] LABS: ALB/GLOB RATIO 0.5 (1.0-2.1); ALBUMIN 2.8 g/dL (3.5-5.0); ALT/SGPT 71 U/L (21-72); AST/SGOT 145 U/L (17-59); BLOOD UREA NITROGEN 47 mg/dL (9-20); CALCIUM 8.1 mg/dl (8.6-10.4); GFR NON-AFRICAN AMERICAN 51
[2018-07-10 07:49] LABS: BASO % 0.4 % (0.0-2.0); EOS # 0.1 K/uL (0.0-0.7); EOS % 1.4 % (0.0-4.0); LYMPH # 0.3 K/uL (1.0-4.3); MEAN CELL VOLUME 101.3 fL (80.0-94.0); MEAN CORPUSCULAR HGB CONC 34.5 g/dL (33.0-37.0); MEAN PLATELET VOLUME 8.1 fL (7.2-11.7); MONO # 0.9 K/uL (0.0-0.8); MONO % 14.2 % (0.0-10.0); NEUT # 4.9 K/uL (1.8-7.0); PLATELET COUNT 101 K/uL (130-400); RBC 4.01 Mil/uL (4.40-5.90); RED CELL DISTRIBUTION WIDTH 19.9 % (11.5-14.5); WHITE BLOOD COUNT 6.1 K/uL (4.8-10.8)
[2018-07-10 09:59] LABS: ANISOCYTOSIS MODERATE; BANDS 3 % (0-2); EOSINOPHIL 1 % (0-4); LYMPHOCYTE 3 % (20-40); MONOCYTE 12 % (0-10); NEUTROPHIL 81 % (50-75); PLATELET ESTIMATE SLIGHTLY DECREASED (NORMAL); TOTAL CELLS COUNTED 100
[2018-07-10 10:00] LABS: BURR CELLS SLIGHT
[2018-07-10] MEDS: Enoxaparin 40 mg Syringe SC SCH (11:00)
--- NOTE | 2018-07-10 12:50 | RAD ---
PROCEDURE: Date of procedure: 07/09/2018 Procedure: 1 . Abdominal indwelling drainage catheter for ascites Medications: The patient received MAC anesthesia administered by anesthesiologist along with physiologic monitoring. 8cc 1 percent lidocaine HISTORY: Liver cancer, ascites, pain. TECHNIQUE: Following informed consent, the was marked, prepped and draped in the usual sterile fashion. Ultrasound showed a moderate amount of intra-abdominal fluid. After skin was anesthetized with lidocaine, a needle was advanced under ultrasound guidance into the peritoneal space. Upon return of ascites, a guidewire was advanced through the needle into the deep pelvis. The tract was then dilated to accommodate a peel-away sheath. A multi side hole drainage catheter was then tunneled under the patient's skin. The drainage catheter was then advanced through the peel-away sheath. The position of the drainage catheter was confirmed with fluoroscopic image. The catheter secured the patient's skin and dressing applied. IMPRESSION: 1. Placement of abdominal indwelling Pleurx drainage catheter for malignant ascites.
[2018-07-10 16:52] VITALS: BP 102/65; PULSE 101; RESP 18; TEMP 97.2; O2SAT 98
[2018-07-10] MEDS: Hydrocodone/Acetaminophen 5 mg /300 mg Tab PO PRN (18:14)
--- NOTE | 2018-07-15 06:10 | DS ---
Mr. Mora was admitted to the hospital with a chief complaint of abdominal distention and pain. The patient has a history of liver cirrhosis. The patient was placed on bed rest, pain medications, paracentesis. Palliative care consult. The patient will be discharged. DIAGNOSES: Liver cirrhosis, liver failure. Jennifer Drew MD
== END 2018-07-10 18:50 | disposition home or self-care (01) | DRG 433 ==
LOC: C.ER 16:45 → C.6T 18:34
PROVIDERS: ADMIT Internal Medicine Pulmonary Disease; ATTEND Internal Medicine Pulmonary Disease
PROC: 0W9G3ZZ Drainage of Peritoneal Cavity, Percutaneous Approach (ICD-10-PCS; principal; 2018-07-07)
PROC: 0W9G30Z Drainage of Peritoneal Cavity with Drainage Device, Percutaneous Approach (ICD-10-PCS; 2018-07-09)
DX: K74.60 Unspecified cirrhosis of liver (principal); R18.8 Other ascites; R64 Cachexia; Z68.1 Body mass index [BMI] 19.9 or less, adult; E11.9 Type 2 diabetes mellitus without complications; E86.0 Dehydration; N40.0 Benign prostatic hyperplasia without lower urinary tract symptoms; Z51.5 Encounter for palliative care; K72.90 Hepatic failure, unspecified without coma; Z66 Do not resuscitate; Z85.05 Personal history of malignant neoplasm of liver